=== PATIENT | male | born 1980 | race Two or more races ===

== ENCOUNTER 2017-11-30 01:41 | Emergency (ER) | payer MEDICAID, OTHER ==
[2017-11-30] MEDS ORDERED: Haloperidol 5mg/ml Inj IM ONE (01:45)
[2017-11-30] MEDS ORDERED: LORazepam Inj 2mg/ml 1ml IM ONE (01:45)
[2017-11-30] MEDS ORDERED: DiphenhydrAMINE 50mg/ml Inj IM ONE (01:45)
[2017-11-30] MEDS ORDERED: Tetanus/Diptheria/Pertussis Vaccine 0.5ml Syr IM ONE (02:00)
[2017-11-30] MEDS ORDERED: Lidocaine 1% Plain 30 ml INJ ONE (02:00)
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
[2017-11-30 02:46] LABS: BASOPHILS % (AUTO) 0.9 % (0.0-2.0); EOSINOPHILS % (AUTO) 1.3 % (0.0-3.0); HEMATOCRIT 44.1 % (42.0-52.0); HEMOGLOBIN 15.2 G/DL (14.2-18.0); LYMPHOCYTES % (AUTO) 18.6 % (20.0-45.0); MEAN CORPUSCULAR VOLUME 87 FL (80-99); MONOCYTES % (AUTO) 8.8 % (1.0-10.0); NEUTROPHILS % (AUTO) 70.5 % (45.0-75.0); PLATELET COUNT 277 K/UL (150-450); RED CELL DISTRIBUTION WIDTH 11.1 % (11.6-14.8); WHITE BLOOD COUNT 7.9 K/UL (4.8-10.8)
[2017-11-30] MEDS ORDERED: Bacitracin Oint UD TOPIC ONE (03:00)
[2017-11-30 03:08] LABS: ANION GAP 11 mmol/L (5-15); BLOOD UREA NITROGEN 9 mg/dL (7-18); CALCIUM 9.4 MG/DL (8.5-10.1); CARBON DIOXIDE 24 MMOL/L (21-32); CHLORIDE 102 MMOL/L (98-107); POTASSIUM 3.1 MMOL/L (3.5-5.1); SODIUM 137 MMOL/L (136-145)
[2017-11-30 03:14] LABS: ALANINE AMINOTRANSFERASE 47 U/L (12-78); ALBUMIN 4.2 G/DL (3.4-5.0); ALBUMIN/GLOBULIN RATIO 1.2 (1.0-2.7); ALKALINE PHOSPHATASE 82 U/L (46-116); ASPARTATE AMINO TRANSFERASE 32 U/L (15-37); BILIRUBIN,TOTAL 0.8 MG/DL (0.2-1.0); CREATINE KINASE 439 U/L (26-308)
[2017-11-30 03:36] LABS: APPEARANCE,URINE CLEAR; BILIRUBIN, URINE NEGATIVE (NEGATIVE); COLOR,URINE PALE YELLOW; GLUCOSE, URINE (UA) NEGATIVE (NEGATIVE); KETONES,URINE 1+ (NEGATIVE); NITRITE,URINE NEGATIVE (NEGATIVE); PH,URINE 6 (4.5-8.0); PROTEIN,URINE NEGATIVE (NEGATIVE); UROBILINOGEN,URINE NORMAL MG/DL (0.0-1.0)
[2017-11-30 03:40] LABS: LEUKOCYTE ESTERASE ,URINE NEGATIVE (NEGATIVE)
[2017-11-30 03:47] VITALS: BP 108/63
[2017-11-30] MEDS ORDERED: BACITRACIN15 GM TOPIC (05:00)
[2017-11-30 05:18] VITALS: BP 99/55
[2017-11-30 06:43] VITALS: BP 104/61
[2017-11-30 07:30] VITALS: BP 103/58
[2017-11-30 10:24] VITALS: BP 101/57
--- NOTE | 2017-12-07 18:27 | Cardiology Report ---
APPROVED REPORT EKG Measurement Heart [id number] Sinus tachycardia Otherwise normal ECG
== END 2017-11-30 10:24 | disposition home or self-care (01) ==
LOC: EDBD 01:41 → EMR 01:55
DX: S61.511A Laceration without foreign body of right wrist, initial encounter (principal); S91.115A Laceration without foreign body of left lesser toe(s) without damage to nail, initial encounter; W56 Contact with nonvenomous marine animal; Y92.9 Unspecified place or not applicable; F23 Brief psychotic disorder; F15.90 Other stimulant use, unspecified, uncomplicated; F12.90 Cannabis use, unspecified, uncomplicated; Z23 Encounter for immunization
CPT/HCPCS: 12002; 36415; 80053; 80307; 80329; 81003; 82550; 85025; 90471; 90715; 93005; 96360; 96361; 96372; 99285; J1200; J1630; J2001

== ENCOUNTER 2017-12-27 22:45 | Emergency (ER) | payer MEDICAID ==
[~2017-12-27] VITALS: Ht 185.4 cm; Wt 90.7 kg
[~2017-12-27 22:45] MED LIST: BACITRACIN15 GM TOPIC
[2017-12-27 22:56] VITALS: BP 113/60
[2017-12-27] MEDS ORDERED: DiphenhydrAMINE 50mg/ml Inj IM ONE (23:00)
[2017-12-27] MEDS ORDERED: LORazepam Inj 2mg/ml 1ml IM ONE (23:00)
[2017-12-27] MEDS ORDERED: Haloperidol 5mg/ml Inj IM ONE (23:00)
[2017-12-27 23:11] VITALS: BP 114/64
[2017-12-27 23:26] VITALS: BP 113/67
[2017-12-27] MEDS ORDERED: DiphenhydrAMINE 50mg/ml Inj IVP ONE (23:30)
[2017-12-27] MEDS ORDERED: LORazepam Inj 2mg/ml 1ml IV ONE (23:30)
[2017-12-27 23:39] LABS: BASOPHILS % (AUTO) 1.3 % (0.0-2.0); EOSINOPHILS % (AUTO) 2.5 % (0.0-3.0); HEMATOCRIT 40.9 % (42.0-52.0); HEMOGLOBIN 14.7 G/DL (14.2-18.0); LYMPHOCYTES % (AUTO) 29.7 % (20.0-45.0); MEAN CORPUSCULAR VOLUME 85 FL (80-99); MONOCYTES % (AUTO) 7.7 % (1.0-10.0); NEUTROPHILS % (AUTO) 58.8 % (45.0-75.0); PLATELET COUNT 251 K/UL (150-450); RED BLOOD COUNT 4.83 M/UL (4.70-6.10); RED CELL DISTRIBUTION WIDTH 11.3 % (11.6-14.8); WHITE BLOOD COUNT 8.3 K/UL (4.8-10.8)
[2017-12-27 23:41] VITALS: BP 110/64
[2017-12-27 23:49] LABS: ANION GAP 4 mmol/L (5-15); BLOOD UREA NITROGEN 7 mg/dL (7-18); CALCIUM 9.2 MG/DL (8.5-10.1); CARBON DIOXIDE 31 MMOL/L (21-32); CHLORIDE 99 MMOL/L (98-107); CREATININE 0.9 MG/DL (0.55-1.30); POTASSIUM 3.8 MMOL/L (3.5-5.1); SODIUM 134 MMOL/L (136-145)
[2017-12-27 23:53] LABS: ALANINE AMINOTRANSFERASE 51 U/L (12-78); ALBUMIN 3.8 G/DL (3.4-5.0); ALKALINE PHOSPHATASE 111 U/L (46-116); ASPARTATE AMINO TRANSFERASE 27 U/L (15-37); BILIRUBIN,TOTAL 0.6 MG/DL (0.2-1.0); CREATINE KINASE 198 U/L (26-308)
[2017-12-27 23:56] VITALS: BP 117/68
[2017-12-28 00:03] VITALS: BP 115/68
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
[2017-12-28 01:14] VITALS: BP 113/67
[2017-12-28 03:57] VITALS: BP 114/58
[2017-12-28 06:16] VITALS: BP 112/69
[2017-12-28 09:55] VITALS: BP 95/58
--- NOTE | 2017-12-28 15:04 | Cardiology Report ---
APPROVED REPORT EKG Measurement Heart [id number] Normal sinus rhythm Normal ECG
[2017-12-28 17:32] VITALS: BP 0/0
--- NOTE | 2017-12-29 04:45 | Consultation ---
DATE OF CONSULTATION: 12/28/2017 HISTORY OF PRESENT ILLNESS: The patient is a 37-year-old male who was brought into the emergency room due to behavioral issues. Apparently, the patient has been using alcohol and crystal meth and has been delusional. He has been agitated and received medication in the emergency room and his positive for crystal meth. During the evaluation, he denied any suicidal or homicidal ideations. He endorsed persecutory delusions and believes that his family is going to hurt him. He does not have any auditory hallucinations. No depressive or manic symptoms. PAST PSYCHIATRIC HISTORY: He has been to [facility] with similar situation before, having been treated with antipsychotics and and discharged after evaluation. PAST MEDICAL HISTORY: None known. ALLERGIES: No known drug allergies. SUBSTANCE ABUSE HISTORY: Crystal meth and weed. MENTAL STATUS EXAMINATION: The patient is alert and oriented x3. Mood is dysphoric. Affect is constricted. Congruent mood. Thought process is disorganized. Thought content, positive for persecutory delusions. No suicidal or homicidal ideation. Insight and judgment non-existent. ASSESSMENT: Bassett I Substance-induced psychosis. Bassett II Deferred. Bassett III As above. Bassett IV Low. Bassett V Global assessment of functioning is 50. PLAN: The patient will be discharged as he is not a danger to self or others. psychotic symptoms which are related to the substance use such as meth. He does not meet the criteria for 5150 or inpatient level of care. Hector William M.D. DR: Roshni JOB#: [id number] CC:
== END 2017-12-28 17:32 | disposition home or self-care (01) ==
LOC: EDBD 22:45 → EDUNIT# 22:45 → EMR 23:07
DX: F15.10 Other stimulant abuse, uncomplicated (principal); F09 Unspecified mental disorder due to known physiological condition; F23 Brief psychotic disorder; L27.0 Generalized skin eruption due to drugs and medicaments taken internally
CPT/HCPCS: 36415; 80053; 80307; 80329; 82550; 85025; 93005; 96361; 96372; 96374; 96375; 99284; J1200; J1630